=== PATIENT | male | born 1975 | race Caucasian/White ===

== ENCOUNTER 2023-05-10 07:46 | Outpatient (CLI) | payer BC, SELFPAY ==
--- NOTE | ~2023-05-10 | MR_ITS ---
EXAMINATION: MR foot LT wo/w con DATE: 05/10/2023 08:55 INDICATION: Ganglion cyst at the left foot TECHNIQUE: Magnetic resonance imaging (MRI) of the left foot was performed without and with 20 mL Mul t[place]ance intravenous contrast. Sequences included sagittal T1-weighted FSE, sagittal fluid sensitive F SE STIR, coronal PD-weighted FS FSE, coronal T1-weighted FSE, axial T2-weighted FS FSE, axial T1-weig hted FSE, axial T1-weighted FS FSE and postcontrast axial, sagittal and coronal T1-weighted FS FSE. COMPARISON: None FINDINGS: Bone alignment is normal. Mild osteoarthritis at the ankle joint with high-grade chondromalacia with subarticular cystlike changes along the lateral margin of the talar dome. Additional mild osteoarthri tis at the first metatarsophalangeal joint with similar high-grade chondromalacia with subarticular e dereje-like signal change at the head of the first metatarsal. Additional mild osteoarthritis without d egenerative subchondral changes at a few of the tarsal metatarsal and interphalangeal joints. No eros ions to suggest inflammatory arthritis. The Lisfranc ligament complex and the collateral ligament com plex at the metatarsophalangeal and interphalangeal joints are normal. Marrow signal is otherwise nor mal with no fracture or pathologic marrow replacing process. Flexor and extensor tendons are normal. There are small joint effusions at the first and second metatarsophalangeal joints. Is also a small a mount of fluid within the first intermetatarsal bursa which remains within normal limits. No Samson's neuroma or other abnormal masses. Tiny focus of susceptibility artifact along the skin surface plant ar to the neck of the third metatarsal likely related to debris along the skin.. IMPRESSION: 1. Mild polyarticular osteoarthritis at the left ankle, mid and forefoot with small regions of high-g rade chondral malacia the lateral margin of the talar dome and at the first metatarsal. 2. Small joint effusions at the first and second metatarsophalangeal joints. No ganglion cysts or abn ormal masses identified. Reviewed, dictated and finalized at location A. IMPRESSION: 1. 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 2. Small joint effusions at the first and second metatarsophalangeal joints. No ganglion cysts or abnormal masses identified.
== END 2023-05-10 07:47 ==
PROVIDERS: PCP Podiatrist Foot & Ankle Surgery; Visit Provider Podiatrist Foot & Ankle Surgery
DX: M67.472 Ganglion, left ankle and foot (principal); M19.072 Primary osteoarthritis, left ankle and foot; M94.272 Chondromalacia, left ankle and joints of left foot; M25.475 Effusion, left foot
CPT/HCPCS: 73720; A9577